=== PATIENT | female | born 1990 | race Caucasian/White ===

== ENCOUNTER → 2020-02-08 12:59 | Outpatient (CLI) | payer OTHER, MEDICAID, SELFPAY ==
--- NOTE | 2020-02-08 13:02 | DI.US.S_ITS ---
PROCEDURE: US OB >= 14 WEEKS FETUS INDICATIONS: 20 week US OUTSIDE/PRIOR DATING DATA: Last menstrual period (LMP): 09/10/19 . LMP-based estimated date of delivery (NIRALI): 06/16/20 . First dating scan (date and location): 11/11/19 . Estimated date of delivery (NIRALI) from first dating scan: 06/30/20 . TECHNIQUE: Real-time scanning was performed of the fetus, with image documentation and biometric measurements. Endovaginal scanning: Not performed COMPARISON: [facility], , US OB >= 14 WEEKS FETUS, 01/06/2020, 14:22. FINDINGS: General: A single living intrauterine gestation is present. Presentation: Transverse Placenta: Placental position is posterior , without previa. Amniotic fluid index: 14.1 cm, normal range is 5-24 cm. heart rate: 163 beats per minute. Maternal cervical canal: 3.9 cm long. Normal lower limit is 2.5 cm. biometrics: Biparietal diameter: 4.7 cm, 20 weeks 0 days Head circumference: 17.5 cm, 20 weeks 0 days Abdominal circumference: 14.8 cm, 20 weeks 0 days Femur length: 3.2 cm, 20 weeks 0 days Estimated gestational age from initial scan: 19 weeks 4 days Composite gestational age from present scan: 20 weeks 0 days Estimated weight and percentile: 329 g, 73rd percentile Measurement variability for biometric dating: +/- 7 days from 14 weeks to 15 weeks 6 days gestation, +/- 10 days from 16 weeks to 21 weeks 6 days gestation, +/- 2 weeks from 22 weeks to 27 weeks 6 days gestation, +/- 3 weeks for 28 weeks gestation or later. weight reference: 4500 g or EFW >90/95% is considered macrosomia or large for gestational age. EFW <10% is small for gestational age. EFW 5% or less is considered intra-uterine growth restriction. Anatomic survey: Neuro: Ventricles are non-dilated at less than 10 mm. Cisterna magna is normal at 3-11 mm. Cerebellum is normal in size and morphology. Nuchal skin fold: Normal at less than 6 mm between 14-21 weeks gestational age. Face: Nose and lips, facial profile are normal. Spine: No evidence for spina bifida. There is prominent prominent thickening of the posterior paraspinal soft tissues diffusely from the level of the neck to the lumbar spine. No cystic appearance. Heart: 4-chambered heart is present, with normal ventricular outflow tracts. Diaphragm: Diaphragm is intact. Stomach: Left-sided stomach is present. Kidneys: No hydronephrosis. Normal is less than 5 mm in 2nd trimester, less than 7 mm in 3rd trimester. Cord: 3-vessel cord has orthotopic insertion. Bladder: Normal in size. Extremities: All 4 extremities identified. IMPRESSION: Single living intrauterine fetus demonstrating expected interval growth. Overall, grossly normal anatomic survey. Nonspecific diffuse thickening of the posterior paraspinal soft tissues which is probably constitutional. As clinically warranted, a short interval follow-up in 3-4 weeks to assure stability, and in particular to exclude developing cystic hygroma in the neck region. Dictated by: Kevin Ochoa M.D. on 02/08/2020 at 16:07 Approved by: Kevin Ochoa M.D. on 02/08/2020 at 16:22
== END ==
PROVIDERS: Referring Provider Obstetrics & Gynecology; Visit Provider Obstetrics & Gynecology
DX: Z36.89 Encounter for other specified antenatal screening (principal); Z3A.20 20 weeks gestation of pregnancy
CPT/HCPCS: 76811

== ENCOUNTER → 2020-04-12 12:42 | Outpatient (CLI) | payer OTHER, MEDICAID, SELFPAY ==
--- NOTE | 2020-04-12 | DI.US.S_ITS ---
PROCEDURE: US OB FOLLOW UP INDICATIONS: Encounter for supervision of normal , uns OUTSIDE/PRIOR DATING DATA: Last menstrual period (LMP): 09/10/2019. LMP-based estimated date of delivery (NIRALI): 06/16/2020 . First dating scan (date and location): 11/11/2019 . Estimated date of delivery (NIRALI) from first dating scan: 06/30/2020 . TECHNIQUE: Real-time scanning was performed of the fetus, with image documentation and biometric measurements. Endovaginal scanning: No COMPARISON: [facility], , OB >= 14 WEEKS FETUS, 02/08/2020, 15:47. [facility], , US OB >= 14 WEEKS FETUS, 04/12/2020, 11:51. FINDINGS: General: A single living intrauterine gestation is present. Presentation: Breech. Placenta: Placental position is posterior , without previa. Amniotic fluid index: 18.9 cm, normal range is 5-24 cm. heart rate: 157 beats per minute. Maternal cervical canal: 4.2 cm long. Normal lower limit is 2.5 cm. biometrics: Biparietal diameter: 30 weeks 2 days Head circumference: 30 weeks 6 days Abdominal circumference: 29 weeks 4 Femur length: 29 weeks 6 days Estimated gestational age from initial scan: 28 weeks 5 days Composite gestational age from present scan: 30 weeks 1 day Estimated weight and percentile: 1465 g; 79th percentile Measurement variability for biometric dating: +/- 7 days from 14 weeks to 15 weeks 6 days gestation, +/- 10 days from 16 weeks to 21 weeks 6 days gestation, +/- 2 weeks from 22 weeks to 27 weeks 6 days gestation, +/- 3 weeks for 28 weeks gestation or later. weight reference: 4500 g or EFW >90/95% is considered macrosomia or large for gestational age. EFW <10% is small for gestational age. EFW 5% or less is considered intra-uterine growth restriction. Other: Not applicable. IMPRESSION: Single living IUP redemonstrated and interval growth is normal. Dictated by: Albert ANDERSEN Interpreted: Hussain Buckley MD on 04/12/2020 at 15:32 Approved by: Patrick Berumen M.D. on 04/13/2020 at 16:35
== END ==
PROVIDERS: Referring Provider Obstetrics & Gynecology; Visit Provider Obstetrics & Gynecology
DX: Z36.2 Encounter for other antenatal screening follow-up (principal); Z3A.30 30 weeks gestation of pregnancy
CPT/HCPCS: 76816

== ENCOUNTER → 2020-05-03 13:02 | Outpatient (CLI) | payer OTHER, MEDICAID, SELFPAY ==
[2020-05-04 09:36] LABS: Candida species Positive (Negative); Gardnerella vaginalis Negative (Negative); Trichomoas vaginalis Negative (Negative)
== END ==
PROVIDERS: Visit Provider Obstetrics & Gynecology
DX: Z34.83 Encounter for supervision of other normal pregnancy, third trimester (principal); N89.8 Other specified noninflammatory disorders of vagina; Z3A.30 30 weeks gestation of pregnancy
CPT/HCPCS: 87480; 87510; 87660

== ENCOUNTER → 2020-05-17 16:58 | Outpatient (CLI) | payer OTHER, MEDICAID, SELFPAY ==
[2020-05-20 04:08] LABS: Chlamydia trachomatis NAA Negative (Negative); Neisseria gonorrhoeae NAA Negative (Negative)
== END ==
PROVIDERS: Visit Provider Obstetrics & Gynecology
DX: Z34.83 Encounter for supervision of other normal pregnancy, third trimester (principal); Z3A.34 34 weeks gestation of pregnancy
CPT/HCPCS: 87491; 87591

== ENCOUNTER → 2020-06-01 14:11 | Outpatient (CLI) | payer OTHER, MEDICAID, SELFPAY ==
[2020-06-02 12:37] LABS: Strep Grp B PCR POS for Grp B Strep
== END ==
PROVIDERS: Visit Provider Obstetrics & Gynecology
DX: Z34.83 Encounter for supervision of other normal pregnancy, third trimester (principal); Z3A.36 36 weeks gestation of pregnancy
CPT/HCPCS: 87653

== ENCOUNTER 2020-06-25 11:09 | Outpatient (CLI) | payer OTHER, MEDICAID, SELFPAY ==
--- NOTE | 2020-06-25 11:38 | PM.OBTRLD ---
Visit Information Visit Information Date of evaluation: 06/25/20 Primary OB Provider: Verenice Urena On-call OB Provider: Chantell Salcedo Reason for Evaluation: Yes non-stress test non-stress test reason: decreased movement Vital Signs Vital Signs: BP 124/70 P 78 PFSH Medical History (Updated 06/25/20 @ 11:42 by Chantell Salcedo DO) Anxiety Bicornuate uterus (~2017) Broken clavicle Broken rib (~2014) Fracture of tibia and fibula (~2011) Shingles Surgical History (Updated 11/09/19 @ 13:44 by Lynette Subramanian RN) History of laparoscopic appendectomy (~2011) Family History (Updated 11/09/19 @ 14:27 by Lynette Subramanian RN) Mother No problems noted. Father No problems noted. 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 Quit 2018.) Tobacco: How many years used: 1 quit status: has quit before second hand exposure: No alcohol intake: former (rarely, once a month or less.) substance use type: does not use Evaluation Evaluation Baseline heart rate: 130 Variability: Moderate (11-25) monitor accelerations: Present Monitor Decelerations: Absent Category of Tracing: Reactive Diagnosis, Plan/Disposition Final Diagnosis (1) 39 weeks gestation of : Status: Acute (2) Decreased movement: Status: Acute Plan/Disposition Plan: 30 year old at 39 weeks and 5 days gestation. Patient came in with concerns of decreased movement. Denied contractions, leaking or bleeding. NST reactive on the monitor and baby active. Patient reassured. Follow-up as scheduled in clinic in a couple days. OB Disposition: home
== END 2020-06-25 11:45 | disposition home or self-care (01) ==
LOC: LABOR 11:27 → OB 06-26 08:29
PROVIDERS: Referring Provider Family Medicine; Visit Provider Family Medicine
DX: O36.8130 Decreased fetal movements, third trimester, not applicable or unspecified (principal); Z3A.39 39 weeks gestation of pregnancy
CPT/HCPCS: 59025; G0378; G0379

== ENCOUNTER 2020-06-28 09:29 | Observation (INO) | payer OTHER, MEDICAID, SELFPAY | END 2020-06-28 10:37 | disposition home or self-care (01) | PROVIDERS: Admitting Provider Obstetrics & Gynecology; Referring Provider Obstetrics & Gynecology; Visit Provider Obstetrics & Gynecology | DX: O34.03 Maternal care for unspecified congenital malformation of uterus, third trimester (principal); Q51.3 Bicornate uterus; Z3A.40 40 weeks gestation of pregnancy | CPT/HCPCS: 59025; G0378; G0379 ==

== ENCOUNTER 2020-06-28 17:50 | Inpatient (IN) | payer OTHER, MEDICAID, SELFPAY ==
[2020-06-28] MEDS: LACTATED RINGERS 1,000 ML 100 ML IV (21:30)
[2020-06-28 21:37] VITALS: BP 124/78
[2020-06-28] MEDS: PENICILLIN G POTASSIUM 5,000,000 UNIT in DEXTROSE 5% IN WATER 250 ML IV (21:50)
[2020-06-28 21:52] LABS: Add Manual Diff / Slide Review NO; Basophils Absolute Auto 100 /uL (0-100); Basophils Percent Auto 0.4 % (0-2); Eosinophils Absolute Auto 0 /uL (0-450); Eosinophils Percent Auto 0.1 % (2-4); Hematocrit 39.4 % (36-46); Hemoglobin 13.4 g/dL (12.0-16.0); Lymphocytes Absolute Auto 1400 /uL (1100-4500); Lymphocytes Percent Auto 8.1 % (25-40); Mean Corpuscular Hemoglobin 30.2 PG (26-34); Mean Corpuscular Volume 88.7 fL (80-100); Monocytes Absolute Auto 600 /uL (0-900); Monocytes Percent Auto 3.7 % (3-14); Neutrophils Absolute Auto 15100 /uL (1500-7000); Neutrophils Percent Auto 87.7 % (50-75); Platelet Count 265 X10^3/uL (150-400); Red Blood Cell Count 4.44 X10^6/uL (4.0-5.2); White Blood Cell Count 17.2 X10^3/uL (4.5-11.0)
[2020-06-28 22:20] LABS: COVID19 -Nasal RAPID Negative (Negative)
[2020-06-28] MEDS: FENT 2MCG/ML BUPIV 0.125% EPI 200 MCG/100 ML PLAST..BAG 6 MCG EPIDURAL (22:20)
[2020-06-28 23:21] VITALS: BP 124/64; PULSE 72; RESP 16; TEMP 36.8
[2020-06-29] MEDS: OXYTOCIN PREMIX 30 UNIT/500 ML PLAST..BAG 200 UNIT IV (01:36)
[2020-06-29] MEDS: PENICILLIN G POTASSIUM 3,000,000 UNIT/50 ML FROZ.PIGGY 100 UNIT IV ×3 (01:39→09:48)
--- NOTE | 2020-06-29 02:11 | PM.OBHP.1 ---
OB HPI Date/Time Date of admission: 06/28/20 Date Patient Seen: 06/29/20 Time Patient Seen: 02:00 History of Present Condition Chief complaint: EVAL OF LABOR : 3 Para: 0 Estimated Date of Delivery: 06/27/20 Estimated Gestational Age (weeks): 40.2 Narrative: Narcisa Marie is a 30 year old female @ 40wks 1 day by early US who presents for repeat evaluation of labor. Was seen at 1830 w/ painful contractions Q 4 minutes, reactive NST and CE 1.5-2/80%/-1 and was sent to walk and return. Now back with more painful contractions Q 2-3 minutes. Has notice leaking of scant amounts of clear fluid since around 1930. Routine PN care w/ . History of Present care: good care, initiated at week # (7) and number of visits (11) Dating criteria: LMP confirmed by 1st trimester US Ultrasounds: abnormal US findings (thickening of post paraspinal soft tissue, resolved on follow-up US) Obstetrical complications: none Medical complications: genitourinary (R kidney stone @ 20wks) Preadmission Labs Blood type: O (+) positive -: Antibody screen: negative, GBS status: positive, HBsAG: negative, HIV: negative and RPR/VDLR: negative -: Chlamydia screen: not detected and Gonorrhea screen: not detected -: Rubella: immune and Varicella: immune HCT: 39.6 HCAB: negative 1 hr GTT: 118 Prior (ies) History: 02/24/18- EAB @ 5wks 06/14/19- SAB @ 8wks Evaluation Evaluation Baseline heart rate: 155 Variability: Moderate (11-25) monitor accelerations: Present Monitor Decelerations: Absent Uterine Contraction Intensity: Moderate Category of Tracing: Reactive Status: Category l Cervical dilation (cm): 2 Cervical effacement (%): 100 station: -2 Laboratory results: Laboratory Tests 06/28/20 06/28/20 06/28/20 21:30 21:30 21:50 WBC 17.2 H RBC 4.44 Hgb 13.4 Hct 39.4 MCV 88.7 MCH 30.2 MCHC 34.0 RDW 13.0 Plt Count 265 Neut % (Auto) 87.7 H Lymph % (Auto) 8.1 L [place] % (Auto) 3.7 Eos % (Auto) 0.1 L Baso % (Auto) 0.4 Neut # (Auto) 27588 H Lymph # (Auto) 1400 [place] # (Auto) 600 Eos # (Auto) 0 Baso # (Auto) 100 SARS-CoV-2 (PCR) Negative Blood Type O Positive Antibody Screen Negative Non-invasive Membranes Rupture Test: positive [facility] Medical History Anxiety Bicornuate uterus (~2017) Broken clavicle Broken rib (~2014) Fracture of tibia and fibula (~2011) Shingles Surgical History History of laparoscopic appendectomy (~2011) Family History Mother No problems noted. Father No problems noted. 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.) ino/methodist: X.Non-specified special ino needs: No leisure activities: exercise (hiking, dance, yoga) Smoking Status: Never smoker Tobacco: How many years used: 1 quit status: has quit before second hand exposure: No alcohol intake: former (rarely, once a month or less.) substance use type: does not use Meds Home Medications and Allergies Home Medications Medication Instructions Recorded Confirmed Type omega-3 fatty acids 1,000 mg 1,000 mg PO DAILY 11/09/19 06/28/20 History capsule prenat.vits,martha,apg-pjlv-[id number] 1 tab PO DAILY 11/09/19 06/28/20 History Double Electric breast Pump and #1 each 12/16/19 06/28/20 Rx Supplies Allergies Allergy/AdvReac Type Severity Reaction Status Date / Time morphine Allergy Intermediate Rash Verified 06/28/20 22:39 acetaminophen [From Vicodin] AdvReac Intermediate Makes her Verified 06/28/20 22:39 anxious, doesn't help for pain. hydrocodone [From Vicodin] AdvReac Intermediate Makes her Verified 06/28/20 22:39 anxious, doesn't help for pain. Review of Systems Review of Systems ROS: Yes All systems reviewed with the patient and are negative except as otherwise documented Exam Vital Signs (past 8 hours): - 06/28/20 21:37 Blood Pressure 124/78 on admit BP 147/95, HR 114bpm, RR 26/min, T36.6C Temporal Resp Effort & Inspection: normal respiratory effort Auscultation: clear to auscultation bilaterally Cardio Rate: regular rate Rhythm: regular rhythm Heart Sounds: S1 normal and S2 normal Presentation: vertex Objective Labs Result Diagrams: 06/28/20 21:30 Labs: Laboratory Results - last 24 hr 06/28/20 06/28/20 06/28/20 21:30 21:30 21:50 WBC 17.2 H RBC 4.44 Hgb 13.4 Hct 39.4 MCV 88.7 MCH 30.2 MCHC 34.0 RDW 13.0 Plt Count 265 Neut % (Auto) 87.7 H Lymph % (Auto) 8.1 L [place] % (Auto) 3.7 Eos % (Auto) 0.1 L Baso % (Auto) 0.4 Neut # (Auto) 11497 H Lymph # (Auto) 1400 [place] # (Auto) 600 Eos # (Auto) 0 Baso # (Auto) 100 SARS-CoV-2 (PCR) Negative Blood Type O Positive Antibody Screen Negative Assessment and Plan Assessment and Plan Assessment and Plan narrative: A: Term Nullipara SROM <2 hours without sx of infection Approaching active labor GBS prophylaxis indicated Cat I FHR P: Admit, routine orders w/ PCN for GBS prophylaxis. Epidural KALYN. Given resolution of HTN w/ epidural, elevated BP appears to be pain related and not a complication. May start pitocin if contraction space to >4 minutes apart. Reassess in 4 hours or sooner, PRN. Will call [facility] for .
[2020-06-29] MEDS: LACTATED RINGERS 1,000 ML 100 ML IV ×3 (06:57→21:59)
[2020-06-29] MEDS: FENT 2MCG/ML BUPIV 0.125% EPI 200 MCG/100 ML PLAST..BAG 6 MCG EPIDURAL (09:05)
[2020-06-29] MEDS: CEFAZOLIN 2 GM/100 ML FROZ.PIGGY IV (11:43)
--- NOTE | 2020-06-29 11:45 | PM.PREOP ---
Pre-operative Note COVID-19 COVID-19 status: Negative Result date/Date tested (Pos, Neg/Pending): 06/28/20 Interval Note History & Physical reviewed/Exam performed by Physician: Yes Changes to H&P: No H&P completed within 30 days and has changed as indicated here:: 06/29/20
--- NOTE | 2020-06-29 12:18 | SUR.OPER ---
Supine on Padded OR bed, head on pillow, safety belt at thigh, arms secured on padded arm boards at <90 degrees abduction. Bump under right buttock. Legs uncrossed with pillow under knees, gel pad to heels, tape over blanket to lower legs.
--- NOTE | 2020-06-29 12:23 | SUR.OPER ---
FHT 154 LIVE MALE BORN AT 1207
[2020-06-29 12:52] VITALS: BP 142/60; PULSE 91; RESP 24; TEMP 36.9; O2SAT 100
[2020-06-29 12:57] VITALS: BP 131/68; PULSE 91; RESP 18; O2SAT 100
[2020-06-29 13:02] VITALS: BP 132/80; PULSE 94; RESP 18; O2SAT 100
--- NOTE | 2020-06-29 13:05 | P.OP_ITS ---
Operative Date/Time/Diagnoses Date of procedure: 06/29/20 Time of procedure: 13:05 Pre-op diagnosis: 40+ 4 weeks gestation Bicornuate uterus Stage I arrest of labor Post-op diagnosis: same Procedure & Clinicians Procedure: Primary low-transverse section Same procedure as scheduled: Yes Indications: Bicornuate uterus Stage I arrest of labor 40-,4/7 weeks gestation Surgeon: Verenice Yoder Yes if Unassisted: No Site Superintendent: Isabelle Delaney Reason for Site Superintendent: To assist in delivery of the Retraction and cutting of suture Anesthesia Type: Epidural Operative Notes Findings: Live male infant Normal tubes and ovaries Bicornuate uterus with approximately a 4 cm septum at the fundus of the uterus Moderate meconium-stained amniotic fluid Nuchal cord x1 Closure Type: primary Specimen(s): cord blood and placenta Intraoperative meds administered: Acetaminophen, Duramorph, Ketorolac and Pitocin Applied: Catheter Estimated Blood Loss (mL): 500 Blood products transfused: none Procedure in detail: The patient was taken to the operating room where she was placed in the dorsal supine position with a leftward tilt. She was prepped and draped in the usual sterile fashion. A timeout was performed. After epidural analgesia was found to be adequate, a Pfannenstiel skin incision was made 2 fingerbreadths above the pubic symphysis and carried through to the underlying layer fascia. The fascia was nicked in the midline, and the incision extended bilaterally with the Gupta scissors. The superior aspect of the fascial incision was grasped with a [place]oma clamps, elevated, and the underlying rectus muscles dissected off sharply and bluntly. Attention was then turned to the inferior aspect of this incision which in a similar fashion was grasped with a [place] clamps, elevated, and the underlying rectus muscles dissected off sharply and bluntly. The rectus muscles were in the midline. The peritoneum was identified, grasped between 2 hemostats, and entered sharply with the Metzenbaum scissors. This incision was extended superiorly and inferiorly with good visualization of the bladder. The bladder blade was inserted. The vesicouterine peritoneum was identified, grasped with the pickup, and entered sharply with the Metzenbaum scissors. This incision was extended bilaterally, and the bladder flap was created digitally. The bladder blade was reinserted. The lower uterine segment was incised in a transverse fashion with the scalpel. Upon entering the amniotic sac there was a small amount of moderate meconium- stained amniotic fluid. The infant's head was delivered without difficulty. A nuchal cord x1 was reduced. The nose and mouth were suctioned with bulb suction. The remainder of the body delivered without difficulty. The cord was double clamped and cut. The infant was handed off to waiting RN and RT. The placenta was delivered manually. The uterus was cleared of all clots and debris. There was a bicornuate uterus with a 3-4 cm septum at the fundus. The uterine incision was repaired with #1 chromic in a running interlocking fashion, and a second layer the same suture was used for an imbricating layer. Hemostasis was achieved. The tubes and ovaries were examined and were found to be normal. The gutters were cleared of all clots and debris. The bladder flap was reapproximated using 2-0 Vicryl in a running fashion. The parietal peritoneum was closed using 2-0 Vicryl in a running fashion. The fascia was reapproximated using 0 Vicryl in a running fashion. Subcutaneous layer was copiously irrigated with warm normal saline. 5 simple interrupted sutures of 3- 0 Vicryl were placed to reapproximate the subcutaneous layer. The skin was closed with 4-0 Monocryl in a subcuticular fashion. Steri-Strips were placed. An Aquacel dressing was placed. The uterus was expressed of a small amount of old blood. Sponge, lap, and instrument counts were correct x-2. The patient tolerated the procedure well, and was taken to PACU in stable condition. Complications: none [place] Baby 1: Gender: Male Presentation: vertex Placental Delivery Description: Manual Removal Cord Vessel Description: 3 Vessels, Nuchal Cord and Tight score (1 min): 8 score (5 min): 9 Post-operative Condition: stable Disposition: PACU Aftercare: routine postop
--- NOTE | 2020-06-29 13:05 | P.HPOB_ITS ---
OB HPI Date/Time Date of admission: 06/28/20 Date Patient Seen: 06/29/20 Time Patient Seen: 07:50 History of Present Condition Chief complaint: : 1 Para: 0 Estimated Date of Delivery: 06/27/20 Estimated Gestational Age (weeks): 40+2 Narrative: Narcisa Marie is a 30 year old female 1 para 0 at 40-,2/7 weeks gestation who presented in active labor. History of Present care: good care, initiated at week # (7), number of visits (12) and pounds weight gain (62) Dating criteria: LMP confirmed by 1st trimester US Ultrasounds: normal 1st trimester US and normal mid trimester US Obstetrical complications: none Medical complications: other (Bicornuate uterus) Preadmission Labs Blood type: O (+) positive -: Antibody screen: negative, GBS status: positive, HBsAG: negative, HIV: negative and RPR/VDLR: negative -: Chlamydia screen: not detected and Gonorrhea screen: not detected -: Rubella: immune and Varicella: immune HCT: 39.4 HCAB: negative PAP: Normal Urine: Negative 1 hr GTT: 118 Evaluation Evaluation Baseline heart rate: 135 Variability: Moderate (11-25) monitor accelerations: Present Monitor Decelerations: Absent Contraction Frequency (minutes): 4 Uterine Contraction Intensity: Moderate Status: Category l Cervical dilation (cm): 2 Cervical effacement (%): 85 station: -1 Laboratory results: Laboratory Tests 06/28/20 06/28/20 06/28/20 21:30 21:30 21:50 WBC 17.2 H RBC 4.44 Hgb 13.4 Hct 39.4 MCV 88.7 MCH 30.2 MCHC 34.0 RDW 13.0 Plt Count 265 Neut % (Auto) 87.7 H Lymph % (Auto) 8.1 L Bowie % (Auto) 3.7 Eos % (Auto) 0.1 L Baso % (Auto) 0.4 Neut # (Auto) 58361 H Lymph # (Auto) 1400 [place] # (Auto) 600 Eos # (Auto) 0 Baso # (Auto) 100 SARS-CoV-2 (PCR) Negative Blood Type O Positive Antibody Screen Negative PFSH Medical History Anxiety Bicornuate uterus (~2017) Broken clavicle Broken rib (~2014) Fracture of tibia and fibula (~2011) Shingles Surgical History History of laparoscopic appendectomy (~2011) Family History Mother No problems noted. Father No problems noted. 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.) ino/episcopal: X.Non-specified special ino needs: No leisure activities: exercise (hiking, dance, yoga) Smoking Status: Never smoker Tobacco: How many years used: 1 quit status: has quit before second hand exposure: No alcohol intake: former (rarely, once a month or less.) substance use type: does not use Meds Home Medications and Allergies Home Medications Medication Instructions Recorded Confirmed Type omega-3 fatty acids 1,000 mg 1,000 mg PO DAILY 11/09/19 06/28/20 History capsule prenat.vits,martha,rdl-mxrj-[id number] 1 tab PO DAILY 11/09/19 06/28/20 History Double Electric breast Pump and #1 each 12/16/19 06/28/20 Rx Supplies Allergies Allergy/AdvReac Type Severity Reaction Status Date / Time morphine Allergy Intermediate Rash Verified 06/28/20 22:39 acetaminophen [From Vicodin] AdvReac Intermediate Makes her Verified 06/28/20 22:39 anxious, doesn't help for pain. hydrocodone [From Vicodin] AdvReac Intermediate Makes her Verified 06/28/20 2 2:39 anxious, doesn't help for pain. Exam Vital Signs (past 8 hours): - 06/29/20 12:52 06/29/20 12:57 06/29/20 13:02 Temperature 98.4 F Pulse Rate 91 H 91 H 94 H Respiratory Rate 24 18 18 Blood Pressure 142/60 H 131/68 132/80 Pulse Oximetry 100 100 100 Oxygen Delivery Method Room Air Narrative Exam Narrative: Generally: Moderate distress secondary to contractions Lungs: Clear to auscultation bilateral Cardiovascular: Regular rate and rhythm Fundal height: 40 cm Estimated weight: 8-1/2 lb Extremities: 1+ edema Objective Labs Result Diagrams: 06/30/20 05:34 Labs: Laboratory Results - last 24 hr 06/28/20 06/28/20 06/28/20 21:30 21:30 21:50 WBC 17.2 H RBC 4.44 Hgb 13.4 Hct 39.4 MCV 88.7 MCH 30.2 MCHC 34.0 RDW 13.0 Plt Count 265 Neut % (Auto) 87.7 H Lymph % (Auto) 8.1 L Bowie % (Auto) 3.7 Eos % (Auto) 0.1 L Baso % (Auto) 0.4 Neut # (Auto) 77570 H Lymph # (Auto) 1400 [place]ie # (Auto) 600 Eos # (Auto) 0 Baso # (Auto) 100 SARS-CoV-2 (PCR) Negative Blood Type O Positive Antibody Screen Negative Assessment and Plan Assessment and Plan Assessment and Plan narrative: Assessment: 30-year-old 1 para 0 at 40-,2/7 weeks gestation in active labor Group B strep positive Bicornuate uterus Plan: GBS prophylaxis Artificial rupture of membranes when able Epidural as necessary Expected management to spontaneous vaginal delivery Time Spent with Patient Total time spent with greater than 50% in coordination of care (as documented) at patient's floor/unit and/or counseling patient:: 15-24 minutes
[2020-06-29] MEDS: OXYCODONE IR 5 MG TABLET PO ×2 (14:10→15:21)
[2020-06-29] MEDS: OXYCODONE IR 10 MG TABLET PO ×2 (18:33→22:03)
[2020-06-29] MEDS: KETOROLAC 30 MG/ML VIAL IV (18:33)
[2020-06-29] MEDS: LANOLIN OINT 7 GM 1 APPLIC TOP (21:59)
[2020-06-29] MEDS: ACETAMINOPHEN 325 MG TABLET 650 MG PO (22:02)
[2020-06-30] MEDS: KETOROLAC 30 MG/ML VIAL IV ×2 (00:14→06:01)
[2020-06-30] MEDS: OXYCODONE IR 10 MG TABLET PO ×4 (02:05→14:13)
[2020-06-30 05:53] LABS: Hematocrit 32.6 % (36-46); Hemoglobin 11.5 g/dL (12.0-16.0)
[2020-06-30] MEDS: ACETAMINOPHEN 325 MG TABLET 650 MG PO ×3 (06:02→18:21)
[2020-06-30] MEDS: SODIUM CHLORIDE 0.9% FLUSH 10 ML IV (06:04)
[2020-06-30] MEDS: PRENATAL VIT,CALC/IRON/FOLIC 1 TABLET 1 TAB PO (10:02)
[2020-06-30] MEDS: DOCUSATE 250 MG CAPSULE PO (10:03)
[2020-06-30] MEDS: IBUPROFEN 600 MG TABLET PO ×2 (12:11→18:20)
[2020-06-30] MEDS: OXYCODONE IR 5 MG TABLET PO ×2 (18:21→22:45)
[2020-07-01] MEDS: ACETAMINOPHEN 325 MG TABLET 650 MG PO ×3 (00:46→12:53)
[2020-07-01] MEDS: IBUPROFEN 600 MG TABLET PO ×3 (00:47→12:53)
[2020-07-01] MEDS: diphenhydrAMINE 25 MG TABLET PO ×2 (01:35→06:29)
[2020-07-01] MEDS: OXYCODONE IR 10 MG TABLET PO ×2 (02:55→06:23)
[2020-07-01] MEDS: OXYCODONE IR 5 MG TABLET PO (11:17)
--- NOTE | 2020-07-01 11:17 | PM.PNPO.1 ---
Subjective Subjective Date Patient Seen: 06/30/20 Time Patient Seen: 12:00 Interval history: Pain well controlled. Has voided without the catheter. Took a shower. Ambulating independently. Passing flatus. Exam Vital Signs (past 8 hours): Oxygen Delivery Method Room Air Narrative Exam Narrative: Generally: Patient walking around in room, no acute distress Lungs: Clear to auscultation bilaterally Cardiovascular: Regular rate and rhythm Fundal height: U Incision: Clean dry and intact with Aquacel dressing Extremities: Negative Homans, 1+ edema Objective Labs Result Diagrams: 06/30/20 05:34 [facility], [facility] Medical History Anxiety Bicornuate uterus (~2017) Broken clavicle Broken rib (~2014) Fracture of tibia and fibula (~2011) Shingles Surgical History History of laparoscopic appendectomy (~2011) Family History Mother No problems noted. Father No problems noted. 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.) ino/amish: X.Non-specified special ino needs: No leisure activities: exercise (hiking, dance, yoga) Smoking Status: Never smoker Tobacco: How many years used: 1 quit status: has quit before second hand exposure: No alcohol intake: former (rarely, once a month or less.) substance use type: does not use Assessment & Plan Post-op Postoperative Procedures: Procedures Operation Date: 06/29/20 11:15 Actual Procedures Side Surgeon p Section Verenice Urena MD Postoperative day: 1 Postoperative status: doing well Postoperative plan: routine post-op care Time Spent With Patient Time with patient: less than 15 minutes
--- NOTE | 2020-07-06 20:03 | PM.OBDS.1 ---
Discharge Providers Provider Date of admission: 06/28/20 17:50 Discharge Date: 06/27/20 Consults: 06/29/20 13:32 Consult to Training Developer Routine Comment: Discharge provider: Verenice Urena MD Summary Hospital Course Date Patient Seen: 07/01/20 Time Patient Seen: 10:30 Diagnoses: 40 weeks gestation Cervidil cervical ripening Pitocin induction of labor Bicornuate uterus Stage I arrest of labor Primary low-transverse section Yeast infection of the right buttock Hospital Course: Patient is a 30-year-old 1 para 1 who presented on June 28, 2020 for Cervidil ripening. On June 29, 2020 she was started on Pitocin. Artificial rupture membranes was performed. An epidural was received for pain management. She had a stage I arrest of labor and underwent a primary section without complication. At the time she was found to have a bicornuate uterus with a 4 cm septum. There was a nuchal cord x1. There was meconium stained amniotic fluid. Her postoperative course was unremarkable and she is discharged home on postop day # 2. Peripartum Data Delivery Method: Section Laceration Description: None Procedures: Cervidil cervical ripening Pitocin induction of labor Epidural analgesia Artificial rupture of membranes Primary low-transverse section complications: none [place] 1: Gender: Male Disposition of : home Status at Discharge Cognitive/behavioral status at discharge: oriented Functional status at discharge: independent ambulation Overall status at discharge: patient is progressing back to baseline Time Spent with Patient Time attestation: Total time spent providing and/or coordinating discharge services: Time spent: Less than 30 minutes Objective Labs Result Diagrams: 06/30/20 05:34 Exam Vital Signs (past 8 hours): Oxygen Delivery Method Room Air Narrative Exam Narrative: Generally: Patient walking around in room, no acute distress Lungs: Clear to auscultation bilaterally Cardiovascular: Regular rate and rhythm Abdomen: Soft, good bowel sounds Incision: Clean dry and intact with Aquacel dressing Right buttock: Erythematous with satellite lesions Extremities: 1+ edema, negative Homans Discharge Plan Discharge Plan Patient Disposition: Home Provider Discharge Comment: Call with fever, chills, redness or drainage around the incision, redness that extends beyond the permanent marker on the right buttock, or bleeding vaginally more than a pad in an hour Tylenol 650 mg every 6 hours Ibuprofen 600 mg every 6 hours Stool softener once a day until bowels back to normal Discharge orders & Medications Prescriptions: New oxycodone 5 mg tablet 5 mg PO Q4H PRN (Reason: pain) Qty: 20 RF: 0 ibuprofen 600 mg tablet 600 mg PO Q6H PRN (Reason: pain or cramping) Qty: 30 RF: 2 fluconazole [Diflucan] 100 mg tablet 100 mg PO DAILY Qty: 10 RF: 0 nystatin-triamcinolone 100,000-0.1 unit/gram-% ointment 1 applic topical BID Qty: 30 RF: 1 docusate sodium 250 mg capsule 250 mg PO DAILY Qty: 20 RF: 2 Continued prenat.vits,martha,[id number] Tablet 1 tab PO DAILY RF: 0 omega-3 fatty acids [Fish Oil Concentrate] 1,000 mg capsule 1,000 mg PO DAILY RF: 0 No Action (DME) Double Electric breast Pump and Supplies See Rx Instructions .ROUTE .MEDSUPPLY Qty: 1 RF: 0 Follow up/Referrals: Verenice Urena MD [Physician] - (Please follow up with Dr. Urena in 1 week In 6 weeks, please follow up with Dr. Urena for your check-up on Friday, August 14 at 2:00 PM ) Diet/Activity/Treatments Diet: Regular Activity: No heavy lifting Skin/Wound/Dressing Care Report to your healthcare provider any signs of infection, such as:: chills, fever, increased pain, unusual drainage and unusual redness Dressing: Do not remove Visit Report/Discharge Packet Instructions: DI for , DI for Prescription Opioid Use Stand Alone Forms: Discharge: Care
== END 2020-07-01 15:18 | disposition home or self-care (01) | DRG 540 ==
PROVIDERS: Admitting Provider Obstetrics & Gynecology; Referring Provider Obstetrics & Gynecology; Visit Provider Obstetrics & Gynecology
PROC: 10D00Z1 Extraction of Products of Conception, Low, Open Approach (ICD-10-PCS; CPT 59514; principal; 2020-06-29 11:15)
DX: O34.03 Maternal care for unspecified congenital malformation of uterus, third trimester (principal); Q51.3 Bicornate uterus; O99.824 Streptococcus B carrier state complicating childbirth; O62.0 Primary inadequate contractions; Z3A.40 40 weeks gestation of pregnancy; Z37.0 Single live birth; Z20.822 Contact with and (suspected) exposure to COVID-19; O69.81X0 Labor and delivery complicated by cord around neck, without compression, not applicable or unspecified
CPT/HCPCS: 01967; 01968; 36415; 59025; 59050; 59514; 84112; 85014; 85018; 85025; 86850; 86900; 86901; 87635; C9803; G0378; G0379; J0690; J1885; J2540; J2590; J2704; J3010

== ENCOUNTER → 2021-11-22 14:19 | Outpatient (CLI) | payer OTHER, MEDICAID, SELFPAY ==
--- NOTE | 2021-11-22 14:21 | DI.US.S_ITS ---
PROCEDURE: US OB <= 14 WEEKS FETUS INDICATIONS: DATING AND VIABILITY OUTSIDE/PRIOR DATING DATA: Last menstrual period (LMP): 09/26/2021 TECHNIQUE: Real-time scanning was performed of the fetus and maternal pelvic organs, with image documentation. Endovaginal scanning was also performed to better visualize the fetus and maternal ovaries. COMPARISON: [facility], US, US OB <= 14 WEEKS FETUS, 12/06/2019, 16:26. FINDINGS: Two small nonspecific cystic foci are seen within the uterus measuring up to 6 mm. However, no definite gestational sac is seen. A bicornuate appearance of the uterus is noted. Focal lobular soft tissue is seen in the right adnexa separate from the right ovary measuring 1.9 x 1.0 x 1.5 cm without significantly increased vascularity. A probable right corpus luteum cyst is seen measuring up to 1.6 cm. IMPRESSION: No definite intrauterine is seen. Nonspecific soft tissue seen in the right adnexa separate from the right ovary without significant vascularity, which is of uncertain etiology. Overall, findings could represent normal early , early failure, or ectopic . Recommend correlation with clinical findings and serial beta HCG measurements as well as follow-up ultrasound as needed. Findings were discussed with the referring physician, Dr. Urena, by telephone on 11/22/2021 at 3:25 PM. We strive to produce accurate, complete, and clear reports of imaging services. To assist us in improving patient care, this report was composed using standard report templates and voice recognition software. Therefore, it may contain abnormal punctuation, insertions and/or omissions. Occasional wrong-word or sound-alike substitutions may occur. Though we review the report and make efforts to correct it, we do recommend that the report be read carefully in proper context to recognize any text inaccuracies. Dictated by: Jairo Johnson M.D. on 11/22/2021 at 15:17 Approved by: Jairo Johnson M.D. on 11/22/2021 at 15:31
== END ==
PROVIDERS: Referring Provider Obstetrics & Gynecology; Visit Provider Obstetrics & Gynecology
DX: O34.00 Maternal care for unspecified congenital malformation of uterus, unspecified trimester; O36.80X0 Pregnancy with inconclusive fetal viability, not applicable or unspecified; Q51.3 Bicornate uterus
CPT/HCPCS: 36415; 76801; 84702

== ENCOUNTER → 2021-11-22 15:56 | Outpatient (CLI) | payer OTHER, MEDICAID, SELFPAY ==
[2021-11-22 19:35] LABS: HCG Quantitative /Beta subunit 365.4 mIU/mL
== END ==
PROVIDERS: Referring Provider Obstetrics & Gynecology; Visit Provider Obstetrics & Gynecology
DX: Z34.81 Encounter for supervision of other normal pregnancy, first trimester (principal); Q51.3 Bicornate uterus
CPT/HCPCS: 36415; 84702

== ENCOUNTER → 2021-11-26 15:12 | Outpatient (CLI) | payer OTHER, MEDICAID, SELFPAY ==
--- NOTE | 2021-11-26 15:13 | DI.US.S_ITS ---
PROCEDURE: US OB <= 14 WEEKS FETUS INDICATIONS: VIABILITY FOLLOW UP ?ECTOPIC OUTSIDE/PRIOR DATING DATA: Last menstrual period (LMP): 09/26/2021. LMP-based estimated date of delivery (NIRALI): 07/03/2022. First dating scan (date and location): n.a.. Estimated date of delivery (NIRALI) from first dating scan: n.a.. TECHNIQUE: Real-time scanning was performed of the fetus and maternal pelvic organs, with image documentation. Endovaginal scanning was also performed to better visualize the fetus and maternal ovaries. COMPARISON: [facility], , US OB <= 14 WEEKS FETUS, 11/22/2021, 14:57. [facility], , US OB <= 14 WEEKS FETUS, 12/06/2019, 16:26. FINDINGS: No intrauterine is identified. There is a 0.4 cm anechoic cyst in the endometrial cavity. Maternal organs: Right ovary appears normal. Adjacent to the right ovary, there is a complex, heterogeneous solid/cystic mass with minimal peripheral vascularity measuring 1.2 x 1.6 x 1.6 cm. It appears unchanged in size. The left ovary is unremarkable. IMPRESSION: 1. No definitive intrauterine . 2. There is a small complex mixed solid and cystic structure with adjacent to the right ovary (previously measuring 1.9 x 1.0 x 1.5 cm on ). It demonstrates minimal peripheral vascularity. Cannot rule out ectopic . 3. No hemoperitoneum. 4. A small anechoic cystic structure in the endometrium, unchanged. It is probably a small endometrial cyst otherwise small gestational sac cannot be excluded. Please correlate with patient's quantitative serum beta HCG. The result was discussed with Dr. Ji. We strive to produce accurate, complete, and clear reports of imaging services. To assist us in improving patient care, this report was composed using standard report templates and voice recognition software. Therefore, it may contain abnormal punctuation, insertions and/or omissions. Occasional wrong-word or sound-alike substitutions may occur. Though we review the report and make efforts to correct it, we do recommend that the report be read carefully in proper context to recognize any text inaccuracies. Dictated by: Rosangela Aguayo M.D. on 11/26/2021 at 16:56 Approved by: Rosangela Aguayo M.D. on 11/26/2021 at 17:14
== END ==
PROVIDERS: Referring Provider Obstetrics & Gynecology; Visit Provider Obstetrics & Gynecology
DX: O36.80X0 Pregnancy with inconclusive fetal viability, not applicable or unspecified (principal); O34.00 Maternal care for unspecified congenital malformation of uterus, unspecified trimester; Q51.3 Bicornate uterus
CPT/HCPCS: 36415; 76801; 76817; 84702

== ENCOUNTER → 2021-11-26 16:12 | Outpatient (CLI) | payer OTHER, MEDICAID, SELFPAY ==
[2021-11-26 19:18] LABS: HCG Quantitative /Beta subunit 419.5 mIU/mL
== END ==
PROVIDERS: Referring Provider Obstetrics & Gynecology; Visit Provider Obstetrics & Gynecology
DX: Q51.3 Bicornate uterus (principal); Z34.81 Encounter for supervision of other normal pregnancy, first trimester
CPT/HCPCS: 36415; 84702

== ENCOUNTER 2022-08-31 15:56 | Emergency (ER) | payer OTHER, MEDICAID, SELFPAY ==
--- NOTE | 2022-08-31 13:58 | DI.US.S_ITS ---
PROCEDURE: US OB <= 14 WK FETUS ADD GEST INDICATIONS: HISTORY OF ECTOPIC. BLEEDING OUTSIDE/PRIOR DATING DATA: Last menstrual period (LMP): Unknown. LMP-based estimated date of delivery (NIRALI): 04/14/2023 First dating scan (date and location): Today. Estimated date of delivery (NIRALI) from first dating scan: 04/14/2023. The calculations are made using the ultrasound NIRALI of 04/14/2023. TECHNIQUE: Real-time scanning was performed of the fetuses and maternal pelvic organs, with image documentation. Endovaginal scanning: Performed for better visualization of the fetuses and maternal adnexal structures. COMPARISON: None. FINDINGS: General: An intrauterine diamniotic/ dichorionic twin is present, as evidenced by separate placental sites and/or intervening membrane thickness of greater than 2 mm at this early gestational age. Embryo A: [place]cott-rump length 1.4 cm: 7 weeks 5 days Heart rate: 114 Embryo B: [place]-rump length 0.5 cm: 6 weeks 2 days Heart rate: 117 Embryo C: Possible gestational sac measuring 0.4 cm which corresponds with 5 weeks 1 day. No pole is seen. Heart rate: None IMPRESSION: 1. Twin with fetus A measuring 7 weeks 5 days and fetus B measuring 6 weeks 2 days by crown-rump length. 2. The patient has a history of a bicornuate uterus. Gestational sac A appears to be in the left horn and gestational sac B appears to be in the right horn. 3. In the left lateral uterus an anechoic area is seen which is possibly an anembryonic . We strive to produce accurate, complete, and clear reports of imaging services. To assist us in improving patient care, this report was composed using standard report templates and voice recognition software. Therefore, it may contain abnormal punctuation, insertions and/or omissions. Occasional wrong-word or sound-alike substitutions may occur. Though we review the report and make efforts to correct it, we do recommend that the report be read carefully in proper context to recognize any text inaccuracies. Dictated by: Trenton Domingo M.D. on 08/31/2022 at 17:28 Approved by: Trenton Domingo M.D. on 08/31/2022 at 17:39
[2022-08-31 16:03] VITALS: BP 117/73; PULSE 80; RESP 15; TEMP 36.7; O2SAT 100; BMI 24.1
--- NOTE | 2022-08-31 18:49 | ED.PREGNANCY ---
HPI - General Chief complaint: Vaginal Bleeding Stated complaint: preg/ needs US, from [place] Time Seen by Provider: 08/31/22 17:19 Source: patient Mode of arrival: Ambulatory Limitations: no limitations History of Present Illness HPI Narrative: Patient is a 32-year-old female history of by corticate uterus with prior ectopic presenting today approximately 6 weeks with concern for miscarriage and bleeding. She had a gush of blood with some clotting. She initially had evaluation and workup at [facility]. They were able to do blood work urine but was sent here for ultrasound. She is a hCG today of 92,000 urinalysis was positive for blood WBCs many squamous cells 1 bacteria. She denies any significant abdominal cramping. Related Data Home Medications Medication Instructions Recorded Confirmed omega-3 fatty acids 1,000 mg 1,000 mg PO DAILY 11/09/19 12/04/21 capsule (Fish Oil Concentrate) prenat.vits,martha,[id number] 1 tab PO DAILY 11/09/19 12/04/21 Previous Rx's Medication Instructions Recorded Double Electric breast Pump and #1 ea 12/16/19 Supplies docusate sodium 250 mg capsule 250 mg PO DAILY #20 caps 07/01/20 fluconazole 100 mg tablet 100 mg PO DAILY #10 tabs 07/01/20 (Diflucan) ibuprofen 600 mg tablet 600 mg PO Q6H PRN pain or cramping 07/01/20 #30 tabs nystatin-triamcinolone 100,000 1 applic topical BID #30 grams 07/14/20 unit/gram-0.1 % topical ointment norethindrone (contraceptive) 0.35 0.35 mg PO DAILY #84 tabs 08/22/20 mg tablet (Ortho Micronor) progesterone micronized 200 mg 200 mg PO DAILY 30 days #30 caps 04/15/22 capsule letrozole 2.5 mg tablet 2.5 mg PO DAILY #5 tabs 07/10/22 Allergies Allergy/AdvReac Type Severity Reaction Status Date / Time morphine Allergy Intermediate Rash Verified 08/31/22 16:07 hydrocodone [From Vicodin] AdvReac Intermediate Makes her Verified 08/31/22 16:07 anxious, doesn't help for pain. Review of Systems Review of Systems ROS Unobtainable: All systems reviewed & are unremarkable except as noted in HPI and below Exam Initial Vital Signs Initial Vital Signs: Vital Signs Temperature 98.1 F 08/31/22 16:03 Pulse Rate 80 08/31/22 16:03 Respiratory Rate 15 08/31/22 16:03 Blood Pressure 117/73 08/31/22 16:03 Pulse Oximetry 100 08/31/22 16:03 Oxygen Delivery Method Room Air 08/31/22 16:03 GENERAL: Well-appearing, well-nourished and in no acute distress. CARDIOVASCULAR: peripheral pulses in tact, cap refill <2 sec RESPIRATORY: No respiratory distress, speaks in full sentences without difficulty [ABDOMEN: Soft, nontender, no guarding or rebound] EXTREMITIES: Normal range of motion, no clubbing or edema. Neurovascularly intact NEUROLOGICAL: Cranial nerves II through XII grossly intact. Normal gait and speech. SKIN: Warm, dry, no petechiae, no rashes or lesions. Course Orders Ordered: ED Orders 08/31/22 13:58 US OB <= 14 weeks fetus Stat Vital Signs Vital signs: Vital Signs - 8 hr 08/31/22 16:03 Temperature 98.1 F Pulse Rate 80 Respiratory Rate 15 Blood Pressure 117/73 Pulse Oximetry 100 Oxygen Delivery Method Room Air MDM - OB/Uterine Contractions Lab Data Labs: Urine Dip Bedside Urine Glucose Negative Bedside Urine Bilirubin - Negative Bedside Urine Ketone - Negative Urine Specific [place] 1.000 Bedside Urine Occult Blood +/- Bedside Urine pH 6.0 Bedside Urine Protein - Negative Bedside Urine Urobilinogen - Negative Bedside Urine Nitrite - Negative Bedside Urine Leukocytes - Negative Esterase Imaging Data US - OB: Radiologist's Impression: Report in PACS: 1.Twin with fetus a measuring 7 weeks 5 days and fetus B measuring 6 weeks 2 days by crown Rump length 2. Patient has history of bicornuate uterus. Gestational sac a appears to be in the left arm and gestational sac be appears to be in the right horn 3. Left lateral uterus and anechoic area seen passively and an embryonic MDM Narrative Medical decision making narrative: Patient had full workup at outside facility accept for ultrasound. Ultrasound shows triplet with a likely demise. Dichorionic twin is to have heartbeats 3rd is likely a demise. Analysis is negative no need for antibiotics. Dr. Yan updated on patient's symptoms test results reports nothing to be done emergently close follow-up with Dr. Urena. Strict return precautions Discharge Plan Departure Patient Disposition: Home Clinical Impression: Dichorionic diamniotic twin gestation Instructions: DI for Vaginal Bleeding During Activity Restrictions/Additional Instructions: *You have been diagnosed with twin , with vaginal bleeding *What to do: At this time pelvic rest no intercourse. You should expect to hear from Dr. Urena's office early next week. *Continue to take medications as directed *Follow up with your primary care provider in 2-3 days or call [phone] Dr. Urena *Return to ER if you should have increased vaginal bleeding more than 2 super pad in an hour, dizziness lightheadedness or any new, worsening or concerning symptoms Prescriptions: No Action (DME) Double Electric breast Pump and Supplies See Rx Instructions .ROUTE .MEDSUPPLY Qty: 1 0RF Rx Instructions: As directed for 99 months. nystatin-triamcinolone 100,000-0.1 unit/gram-% ointment 1 applic topical BID Qty: 30 1RF norethindrone (contraceptive) [Ortho Micronor] 0.35 mg tablet 0.35 mg PO DAILY Qty: 84 4RF progesterone micronized 200 mg capsule 200 mg PO DAILY 30 Days Qty: 30 3RF Rx Instructions: Start on the day of ovulation. Stop medication if you get your period, continue medication if you are through first trimester. letrozole 2.5 mg tablet 2.5 mg PO DAILY Qty: 5 2RF Rx Instructions: Daily x5 days, start checking ovulation 4 days after last dose prenat.vits,martha,[id number] Tablet 1 tab PO DAILY omega-3 fatty acids [Fish Oil Concentrate] 1,000 mg capsule 1,000 mg PO DAILY ibuprofen 600 mg tablet 600 mg PO Q6H PRN (Reason: pain or cramping) Qty: 30 2RF fluconazole [Diflucan] 100 mg tablet 100 mg PO DAILY Qty: 10 0RF docusate sodium 250 mg capsule 250 mg PO DAILY Qty: 20 2RF Referrals: Miscellaneous,DoctorMD [Primary Care Provider] - Vreenice Urena MD [Physician] - Stand Alone Forms: Patient Portal/API
[2022-08-31 18:59] VITALS: BP 129/80; PULSE 77; RESP 16; O2SAT 98
== END 2022-08-31 19:02 | disposition home or self-care (01) ==
PROVIDERS: Emergency Provider Emergency Medicine
DX: O30.041 Twin pregnancy, dichorionic/diamniotic, first trimester (principal); Z3A.01 Less than 8 weeks gestation of pregnancy
CPT/HCPCS: 76801; 76802; 76817; 81003; 99283

== ENCOUNTER → 2022-09-09 13:59 | Outpatient (CLI) | payer OTHER, MEDICAID, SELFPAY ==
--- NOTE | 2022-09-09 14:02 | DI.US.S_ITS ---
PROCEDURE: US OB <= 14 WEEKS FETUS INDICATIONS: DATING OUTSIDE/PRIOR DATING DATA: Last menstrual period (LMP): 07/08/2022. LMP-based estimated date of delivery (NIRALI): 04/14/2023. First dating scan (date and location): 08/31/2022. Estimated date of delivery (NIRALI) from first dating scan: 04/14/2023. TECHNIQUE: Real-time scanning was performed of the fetus and maternal pelvic organs, with image documentation. Endovaginal scanning was also performed to better visualize the fetus and maternal ovaries. COMPARISON: [facility], OB <= 14 WEEKS FETUS, 11/26/2021, 15:45. [facility], OB <= 14 WK FETUS ADD GEST, 08/31/2022, 16:30. FINDINGS: Embryo: Dichorionic diamniotic twin live is identified. Fetus Ahas crown-rump length measuring 1.2 cm corresponding to 7 weeks 3 days. Fetus B has crown-rump length measuring 1.3 cm corresponding to 7 weeks 3 days. Perigestational hemorrhage superior to gestational sac A is present measuring 1.6 x 0.3 x 1.3 cm compared to 2.0 x 1.6 x 0.6 cm. Heart rate: 149 beats per minute and 147 beats per minute within fetus A and B respectively. Maternal organs: Ovaries are unremarkable. IMPRESSION: Single dichorionic diamniotic twin with ultrasound gestational age today of 7 weeks 3 days for both fetus A and fetus B, compared to 9 weeks 0 days from initial ultrasound. Recommend close interval follow-up given date difference between initial ultrasound on 08/31/2022 and today's exam to evaluate for progression. Interval decrease in size of perigestational hemorrhage. We strive to produce accurate, complete, and clear reports of imaging services. To assist us in improving patient care, this report was composed using standard report templates and voice recognition software. Therefore, it may contain abnormal punctuation, insertions and/or omissions. Occasional wrong-word or sound-alike substitutions may occur. Though we review the report and make efforts to correct it, we do recommend that the report be read carefully in proper context to recognize any text inaccuracies. Dictated by: Pau Schmitt M.D. on 09/09/2022 at 21:42 Approved by: Pau Schmitt M.D. on 09/09/2022 at 21:45
== END ==
PROVIDERS: Referring Provider Obstetrics & Gynecology; Visit Provider Obstetrics & Gynecology
DX: O30.041 Twin pregnancy, dichorionic/diamniotic, first trimester (principal); Z3A.01 Less than 8 weeks gestation of pregnancy
CPT/HCPCS: 76801